=== PATIENT | male | born 1985 | race Caucasian/White ===

== ENCOUNTER 2025-02-19 06:09 | Emergency (ER) | payer BC ==
[~2025-02-19] VITALS: Ht 175.3 cm; Wt 86.4 kg
[2025-02-19] MEDS: ketorolac trometh 30MG/ML vial 30 MG/ML VIAL IV ONE (06:52)
[2025-02-19] MEDS: ondansetron/PF 4mg/2ml inj IV ONE (06:53)
[2025-02-19] MEDS: normal saline 1000ml 1,000 ML IV ONE (06:53)
--- NOTE | 2025-02-19 07:01 | Physician Documentation ---
History of Present Illness Chief Complaint: Flank Pain Stated Complaint: FLANK PAIN,VOMITING Time Seen by MD: 06:37 OK to notify your PCP?: Yes Primary Medical Doctor: NONE HPI 39-year-old male presents to the emergency department complaining of right flank pain that woke him up from sleep this morning, patient has a history of kidney stones in the past. He has associated nausea and vomiting with the flank pain that radiates into his right inguinal area. Denies hematuria. Timing/Duration: hours Quality/Severity: severe Location: RLQ, flank Radiation: RLQ Activities on Onset: spontaneous Modifiy Factors: Improves with: urinating Medication Reconciliation Allergies: Coded Allergies: No Known Allergies (Unverified , 02/08/10) Past Medical History Past Medical History: Kidney Stones Review of Systems All Other Systems at this time: Reviewed and Negative Constitutional: Reports: see HPI; Denies: fever Musculoskeletal: Reports: pain, back pain, muscle pain Physical Exam Vital Signs: RN Vital Signs have been reviewed: Yes, Temperature: 97.8, Heart Rate: 102, Respiratory Rate: 18, BP: 139/101, Pulse Oximetry: 95, Weight: 86.400 Oxygen Flow Rate: 0 Pulse Oximetry Reflects: adequate oxygenation General Appearance: alert, mild distress EENT: normal ENT inspection, pharynx normal Neck: normal inspection, full range of motion, supple, non-tender Respiratory: lungs clear, no respiratory distress Chest: no accessory muscle use, chest non-tender Cardiovascular: regular rate, rhythm, no edema Gastrointestinal: normal palpation, non-tender, bowels sounds present; No: pulsatile mass Back: CVA tenderness (R) Progress Results/Orders Results/Orders Orders - KEN GRAY DO * Iv Access / Saline Lock * (02/19/25 06:38) Normal Saline 1000ml (Sodium Chloride 10 (02/19/25 06:40) Ct Abdomen Pelvis (02/19/25 06:38) Completed Orders - KEN GRAY DO Ondansetron Inj. (Zofran 4mg/2ml Vial) (02/19/25 06:40) Ketorolac Trometh 30mg/Ml Vial (Toradol (02/19/25 06:40) Medications Received in ER Medications (Trade) Dose Ordered Sig/Lina Route PRN Reason Start Time Stop Time Status Last Admin Dose Admin (Zofran 4mg/2ml vial) 4 mg ONCE ONCE IV 02/19/25 06:40 02/19/25 06:42 DC 02/19/25 06:53 4 MG (Toradol inj. 30mg/ml) 30 mg ONCE ONCE IV 02/19/25 06:40 02/19/25 06:42 DC 02/19/25 06:52 30 MG Sodium Chloride 1,000 ml @ 1,000 mls/hr ONCE ONCE IV 02/19/25 06:40 02/19/25 07:39 02/19/25 06:53 1,000 MLS/HR Vital Signs 02/19/25 02/19/25 06:12 06:52 Temp 97.8 Pulse 102 Resp 16 18 B/P (MAP) 139/101 Pulse Ox 95 O2 Flow Rate 0 Laboratory Tests Test 02/19/25 06:45 CBC Comment Chemistry Comments Re-Evaluation Re-Evaluation : Progress 10:00 a.m. patient is sleeping comfortably, no acute distress, plan is to discharge home with Russell, Flomax, ibuprofen increase fluids, he was encouraged to strain his urine to try to catch the stone for analysis by his primary care provider. EKG/XRAY/CT/US/VASC/MRI CT : [facility] [address] [address] CAT SCAN Patient: OPHELIA PATIÑO Medical Record: [id number] [facility] 1985, Age: 39 Sex: Male Location: ER Patient Status: REG ER Service Date/Time: 02/19/25737 Ordering Physician: KEN GRAY DO Exam: CT ABDOMEN PELVIS Exam: CT CT ABDOMEN PELVIS History: Right kidney stone vs appy Comparison Study: None Technique: Multidetector spiral CT of the abdomen and pelvis was performed from lung bases to pubic symphysis. Imaging was performed without intravenous contrast. Coronal and sagittal multiplanar reformats were obtained from the axial data set by the technologist. Radiation Dose : 1. Abdomen/Pelvis: CTDIvol 17.4 mGy, DLP 969.04 mGy*cm. Findings: Evaluation of vasculature and solid organs is limited due to lack of intravenous contrast use. Lung Bases: Lung bases are clear. Visualized portions of the heart and pericardium are unremarkable. Liver: The liver is normal in size. No focal lesions. Diffusely hypoattenuating liver parenchyma consistent with hepatic steatosis. Gallbladder and Biliary Tree: The gallbladder is unremarkable. No intrahepatic or extrahepatic biliary ductal dilatation. Spleen: Unremarkable Pancreas: The pancreas is grossly unremarkable. Adrenal Glands: Unremarkable Kidneys: Mild right hydroureteronephrosis to the level of a 4 mm obstructive 4 mm calculus in the distal right ureter. Mild right perinephric fat stranding. Bilateral nonobstructive intrarenal calculi measuring up to 3 mm in the right kidney and 5 mm in the left kidney. GI tract: The stomach is grossly normal in appearance. No evidence of small bowel wall thickening or abnormal dilatation to suggest bowel obstruction. The colon is unremarkable. The appendix is visualized and is normal. Peritoneum/mesentery/retroperitoneum. No evidence of free intraperitoneal air. N o ascites. No evidence of suspicious lymphadenopathy. Abdominal Wall: Unremarkable. Vasculature: The visualized abdominal aorta is normal in size and caliber. Evaluation of abdominal and pelvic vessels is limited due to lack of intravenous contrast. Urinary Bladder: Grossly unremarkable for degree of distention. Pelvic Organs: Unremarkable Musculoskeletal: No aggressive focal bony lesions, acute fractures or dislocation. Left femoral intramedullary nail noted. Well-defined sclerotic lesion in the medial femoral neck measuring 9 mm, likely benign. IMPRESSION: 1. Acute obstructive uropathy due to 4 mm obstructive right ureteral calculus. Additional bilateral nonobstructive intrarenal calculi. 2. Hepatic steatosis. Electronically Signed by:HOLLI GERMAIN MD Date & Time: 02/19/25756 Dictated by: HOLLI GERMAIN MD Dictation date and time: 02/19/25756 Primary Care Provider: NO PRIMARY CARE PROVIDER cc: KEN GRAY DO ~ Medical Decision Making Findings Review of CT shows a kidney stone, no evidence of severe hydronephrosis, no evidence of mass, still have clinical concern for possible other etiologies including appendicitis however there was no inflammatory changes around the appendix, patient will be discharged home with strict return precautions pain medications and recommend close follow up and increasing fluids. Differential Dx:Considerations: Include: AAA, Appendicitis, Cholangitis, Cholelithasis, GI hemorrhage, Testicular torsion, Urinary obstruction, Urinary tract infection, Urolithiasis Departure Disposition: HOME / SELF CARE / HOMELESS Impression: Primary Impression: Renal colic Additional Impression: Calculus of kidney Condition: Improved Discharge Instructions: Kidney Stones, Renal Colic Referrals: NO PRIMARY CARE PROVIDER (PCP) Prescriptions Ibuprofen (Ibuprofen) 600 Mg Tablet 1 TAB PO Q6H PRN for pain, #30 TAB Prov: KEN GRAY DO 02/19/25 Tamsulosin Hcl* (Flomax*) 0.4 Mg Cap.sr.24h 0.4 MG PO DAILY, #10 CAP Prov: KEN GRAY DO 02/19/25 Hydrocodone Bit/Acetaminophen (Hydrocodone-Apap 10-325 Tablet) 10mg/325mg Tablet 1 TAB PO QID PRN PRN for pain for 5 Days, #20 TAB Prov: KEN GRAY DO 02/19/25 Comments Russell prescription was not transmitted to your pharmacy at your request Education Educated: Patient Educated regarding: diagnosis, treatment, prognosis Signature Scribe Signature: None Attestation: Dictated by myself KEN GRAY DO February 19, 2025 07:01
[2025-02-19 07:11] LABS: BASOPHILS % (AUTO) 0.1 % (0-1); EOSINOPHILS % (AUTO) 0 % (0-6); HEMATOCRIT 48.2 % (42.0-52.0); HEMOGLOBIN 16.2 g/dl (14.0-17.9); LYMPHOCYTES # (AUTO) 0.7 X10'3 (1.1-4.8); LYMPHOCYTES % (AUTO) 5.4 % (21-51); MEAN CORPUSCULAR HEMOGLOBIN 28.4 PG (27.0-31.0); MEAN CORPUSCULAR HGB CONC 33.7 g/dL (33.0-36.5); MEAN CORPUSCULAR VOLUME 84.4 FL (78-98); MEAN PLATELET VOLUME 10.1 FL (7.4-10.4); MONOCYTES # (AUTO) 0.5 X10'3 (0-0.9); MONOCYTES % (AUTO) 3.9 % (2-12); NEUTROPHILS # (AUTO) 11.9 X10'3 (1.8-7.7); NEUTROPHILS % (AUTO) 90.6 % (42-75); PLATELET COUNT 189 X10'3 (140-440); RED CELL DISTRIBUTION WIDTH 13.8 % (11.5-14.5); WHITE BLOOD COUNT 13.2 X10'3 (4.5-11.0)
[2025-02-19 07:20] LABS: ALANINE AMINOTRANSFERASE 35 U/L (12-78); ALBUMIN 4.4 G/DL (3.4-5.0); ALBUMIN/GLOBULIN RATIO 1.4 (1.1-1.5); ALKALINE PHOSPHATASE 83 IU/L (46-116); ANION GAP 10 (8-16); ASPARTATE AMINO TRANSFERASE 19 U/L (10-37); BILIRUBIN,TOTAL 0.5 MG/DL (0.1-1.0); BLOOD UREA NITROGEN 20 MG/DL (7-18); BUN/CREATININE RATIO 17.1 (10.0-20.0); CALCIUM 8.9 MG/DL (8.5-10.1); CHLORIDE 108 MMOL/L (99-107); CREATININE 1.17 MG/DL (0.60-1.10); GLUCOSE 134 MG/DL (70-104); LIPASE 30 U/L (16-77); POTASSIUM 3.8 MMOL/L (3.5-5.1); SODIUM 143 MMOL/L (135-145); TOTAL PROTEIN 7.6 G/DL (6.4-8.2); eCRCL 86 ML/MIN; eGFR 70 ML/MIN
--- NOTE | 2025-02-19 07:59 | RADIOLOGY REPORT ---
Exam: CT CT ABDOMEN PELVIS History: Right kidney stone vs appy Comparison Study: None Technique: Multidetector spiral CT of the abdomen and pelvis was performed from lung bases to pubic s ymphysis. Imaging was performed without intravenous contrast. Coronal and sagittal multiplanar reform ats were obtained from the axial data set by the technologist. Radiation Dose : 1. Abdomen/Pelvis: CTDIvol 17.4 mGy, DLP 969.04 mGy*cm. Findings: Evaluation of vasculature and solid organs is limited due to lack of intravenous contrast use. Lung Bases: Lung bases are clear. Visualized portions of the heart and pericardium are unremarkable. Liver: The liver is normal in size. No focal lesions. Diffusely hypoattenuating liver parenchyma con sistent with hepatic steatosis. Gallbladder and Biliary Tree: The gallbladder is unremarkable. No intrahepatic or extrahepatic bilia ry ductal dilatation. Spleen: Unremarkable Pancreas: The pancreas is grossly unremarkable. Adrenal Glands: Unremarkable Kidneys: Mild right hydroureteronephrosis to the level of a 4 mm obstructive 4 mm calculus in the dis twin right ureter. Mild right perinephric fat stranding. Bilateral nonobstructive intrarenal calculi measuring up to 3 mm in the right kidney and 5 mm in the left kidney. GI tract: The stomach is grossly normal in appearance. No evidence of small bowel wall thickening or abnormal dilatation to suggest bowel obstruction. The colon is unremarkable. The appendix is visualiz ed and is normal. Peritoneum/mesentery/retroperitoneum. No evidence of free intraperitoneal air. No ascites. No evidenc e of suspicious lymphadenopathy. Abdominal Wall: Unremarkable. Vasculature: The visualized abdominal aorta is normal in size and caliber. Evaluation of abdominal a nd pelvic vessels is limited due to lack of intravenous contrast. Urinary Bladder: Grossly unremarkable for degree of distention. Pelvic Organs: Unremarkable Musculoskeletal: No aggressive focal bony lesions, acute fractures or dislocation. Left femoral intr amedullary nail noted. Well-defined sclerotic lesion in the medial femoral neck measuring 9 mm, likel y benign. IMPRESSION: 1. Acute obstructive uropathy due to 4 mm obstructive right ureteral calculus. Additional bilateral nonobstructive intrarenal calculi. 2. Hepatic steatosis.
[2025-02-19 09:13] LABS: BILIRUBIN,URINE NEGATIVE (Neg); CLARITY,URINE CLEAR (Clear); COLOR,URINE YELLOW (Yellow); GLUCOSE, URINE NEGATIVE (Neg); KETONES,URINE TRACE mg/dl (Neg); LEUKOCYTE ESTERASE ,URINE NEGATIVE (Neg); NITRITES, URINE NEGATIVE (Neg); OCCULT BLOOD,URINE LARGE (Neg); PROTEIN,URINE TRACE mg/dl (Neg); UROBILINOGEN,URINE 0.2 E.U/dL (0.2-1.0)
[2025-02-19 09:21] LABS: UA COLLECTION TYPE CLN CATCH MIDSTREAM
[2025-02-19 09:37] LABS: BACTERIA,URINE FEW /HPF (Neg); MUCUS STRANDS FEW /LPF (Neg); RBC,URINE 50-100 /HPF (0-2); SQUAMOUS EPITHELIAL CELL,UR FEW /LPF (FEW)
[2025-02-19] MEDS ORDERED: HYDR-3973 PO (10:06)
[2025-02-19] MEDS ORDERED: IBUP-1985 PO (10:06)
[2025-02-19] MEDS ORDERED: TAMS-55 PO (10:06)
[2025-02-19 10:20] VITALS: BP 109/69; PULSE 92; RESP 18; TEMP 98.2; O2SAT 99
== END 2025-02-19 10:23 | disposition home or self-care (01) ==
LOC: ER 06:11
DX: N20.2 Calculus of kidney with calculus of ureter (principal); Z87.442 Personal history of urinary calculi
CPT/HCPCS: 36415; 74176; 80053; 81001; 83690; 85025; 87088; 96361; 96374; 96375; 99285; J1885; J2405; J7030

== ENCOUNTER 2025-04-09 22:46 | Emergency (ER) | payer BC ==
[~2025-04-09] VITALS: Ht 175.3 cm; Wt 84.7 kg
[~2025-04-09 22:46] MED LIST: IBUP-1985 PO
--- NOTE | 2025-04-09 22:55 | Physician Documentation ---
History of Present Illness ~ Chief Complaint: Flank Pain Stated Complaint: FLANK PAIN Time Seen by MD: 23:28 OK to notify your PCP?: Yes Primary Medical Doctor: NONE Source: patient Mode of Arrival: POV Exam Limitations: no limitations HPI 31-year-old male presents with right flank pain for the past 2 hours. He was seen recently for kidney stone in the left kidney which he was able to pass and was 4 mm. He attempted to take ibuprofen prior to arrival but vomited it back up. He says the pain feels exactly like last time he passed the kidney stone. He was not aware of having any stone in the right side from his prior visit. Medication Reconciliation Allergies: Coded Allergies: No Known Allergies (Unverified , 02/08/10) Scheduled PRN Ibuprofen (Ibuprofen), 1 TAB PO Q6H PRN for pain Past Medical History Past Medical History: Kidney Stones Review of Systems All Other Systems at this time: Reviewed and Negative Physical Exam Vital Signs: RN Vital Signs have been reviewed: Yes, Temperature: 98.0, Source: Temporal, Heart Rate: 84, Respiratory Rate: 14, BP: 135/94, Pulse Oximetry: 100, Weight: 84.650 Pulse Oximetry Reflects: adequate oxygenation Physical Exam General: Alert, no distress. HEENT: No injection, moist mucous membranes. Neck: Full range of motion. Respiratory: No respiratory distress, equal chest rise and fall. Chest: No accessory muscle use. Cardiovascular: Regular rate and rhythm. Gastrointestinal: Nondistended. Extremities: Normal range of motion, no deformity. Back: Right CVA tenderness Neurologic: Oriented x4. Psychiatric: Normal mood and affect. Skin: Normal color, warm and dry. Progress Results/Orders Results/Orders Orders - MINGO LANGFORD MD Normal Saline 1000ml (Sodium Chloride 10 (04/10/25 01:10) Acetaminophen 325mg Tablet (Tylenol Tabl (04/10/25 01:40) Completed Orders - MINGO LANGFORD MD Cbc/Diff (04/09/25 23:33) BMP (04/09/25 23:33) Morphine 4mg/Ml Inj. (Morphine Inj.) (04/10/25 01:10) Ua W/Microscopic, Cult If Ind (04/10/25 01:21) Medications Received in ER Medications (Trade) Dose Ordered Sig/Lina Route PRN Reason Start Time Stop Time Status Last Admin Dose Admin (Toradol inj. 30mg/ml) 30 mg ONCE ONCE IM 04/09/25 22:55 04/09/25 23:21 DC 04/09/25 23:23 30 MG (Zofran ODT tablet) 4 mg ONCE ONCE PO 04/09/25 22:55 04/09/25 23:21 DC 04/09/25 23:24 4 MG Sodium Chloride 1,000 ml @ 1,000 mls/hr ONCE ONCE IV 04/10/25 01:10 04/10/25 02:09 04/10/25 01:36 1,000 MLS/HR (morphine inj.) 4 mg ONCE ONCE IV 04/10/25 01:10 04/10/25 01:11 DC 04/10/25 01:35 4 MG Vital Signs 04/09/25 04/09/25 04/10/25 04/10/25 22:47 23:23 00:27 00:27 Temp 98.0 Pulse 84 65 Resp 14 20 14 18 B/P (MAP) 135/94 118/81 (93) Pulse Ox 100 97 04/10/25 01:35 Resp 16 Laboratory Tests Test 04/10/25 00:01 04/10/25 01:21 White Blood Count 13.2 H Red Blood Count 5.56 Hemoglobin 16.1 Hematocrit 47.0 Mean Corpuscular Volume 84.6 Mean Corpuscular Hemoglobin 28.9 Mean Corpuscular Hemoglobin Concent 34.2 Red Cell Distribution Width 13.9 Platelet Count 190 Mean Platelet Volume 9.1 Neutrophils (%) (Auto) 88.8 H Lymphocytes (%) (Auto) 7.2 L Monocytes (%) (Auto) 3.6 Eosinophils (%) (Auto) 0.2 Basophils (%) (Auto) 0.2 Neutrophils # (Auto) 11.7 H Lymphocytes # (Auto) 0.9 L Monocytes # (Auto) 0.5 Eosinophils # (Auto) 0.0 Basophils # (Auto) 0.0 CBC Comment Sodium Level 143 Potassium Level 3.6 Chloride Level 105 Carbon Dioxide Level 25.4 Anion Gap 13 Blood Urea Nitrogen 17 Creatinine 1.12 H Estimated GFR/1.73 m2 73 BUN/Creatinine Ratio 15.2 Glucose Level 123 H Calcium Level 9.1 Albumin 4.2 Chemistry Comments Urine Specimen Description Cln catch midstream Urine Color Yellow Urine Clarity Cloudy Urine pH 7.0 Urine Specific [place] 1.020 Urine Protein 30 H Urine Glucose (UA) Negative Urine Ketones 15 H Urine Occult Blood Large H Urine Nitrite Negative Urine Bilirubin Negative Urine Urobilinogen 0.2 Urine Leukocyte Esterase Negative Urine RBC 20-50 Urine WBC 0-4 Urine Squamous Epithelial Cells Few Urine Bacteria None seen Urine Culture Indicated Not ind Volume Urine Centrifuged 10 ml Urine Comment Medical Decision Making Additional info obtained from: old records Findings Patient presented to the emergency room with flank pain as per HPI. Differentials include but are not limited to kidney stone, musculoskeletal pain, aortic pathology, referred pain therefore emergent labs and imaging indicated. Labs show 3 mm kidney stone. Patient is responding to pain therapy, no evidence of acute kidney injury and no urinary tract infection. I believe he will do well on outpatient basis. Departure Disposition: HOME / SELF CARE / HOMELESS Impression: Primary Impression: Calculus of kidney Condition: Improved Discharge Instructions: Kidney Stones Referrals: NO PRIMARY CARE PROVIDER (PCP) Prescriptions Ondansetron 8mg ODT (Ondansetron Odt) 8 Mg Tab.rapdis 1 TAB PO Q6H for nausea/vomiting for 3 Days, #12 TAB 0 Refills Prov: MINGO LANGFORD MD 04/10/25 Hydrocodone Bit/Acetaminophen 5/325 MG (Tyrone 5/325 MG) 5 Mg/325 Mg Tablet 1-2 TAB PO Q4-6 hours PRN for pain, #15 TAB Prov: MINGO LANGFORD MD 04/10/25 Tamsulosin Hcl* (Flomax*) 0.4 Mg Cap.sr.24h 1 CAP PO DAILY, #10 CAP Prov: MINGO LANGFORD MD 04/10/25 Education Educated: Patient Educated regarding: diagnosis, treatment, need for follow up Additional Comment Medical Screen Exam This patient recieved a medical screening examination. After reviewing the individual's medical complaints with presenting symptoms and performing an appropriate physical examination, it was determined that no immediate life- threatening emergency medical condition is present. This individual is also not a women having contractions. Signature Scribe Signature: No scribe Attestation: The note accurately reflects work and decisions made by me.Mingo Lagnford MD 04/10/25 01:44 AKIRA PITTS [employer] Apr 09, 2025 22:55 MNIGO LANGFORD MD Apr 10, 2025 01:44
[2025-04-09] MEDS: ketorolac trometh 30MG/ML vial 30 MG/ML VIAL IM ONE (23:23)
[2025-04-09] MEDS: ondansetron 4mg rapidly disintigrating tab PO ONE (23:24)
[2025-04-10 00:16] LABS: MEAN PLATELET VOLUME 9.1 FL (7.4-10.4); RED CELL DISTRIBUTION WIDTH 13.9 % (11.5-14.5)
[2025-04-10 00:22] LABS: CREATININE 1.12 MG/DL (0.60-1.10); TOTAL CARBON DIOXIDE 25.4 MMOL/L (24-32); eCRCL 89 ML/MIN; eGFR 73 ML/MIN
[2025-04-10 00:27] VITALS: BP 118/81; PULSE 65; O2SAT 97
--- NOTE | 2025-04-10 00:55 | RADIOLOGY REPORT ---
Exam: CT CT ABDOMEN PELVIS History: right flank pain, hx kidney stone Comparison Study: CT CT ABDOMEN PELVIS on DOS: 02/19/25 Technique: Multidetector spiral CT of the abdomen was performed from lung bases to pubic symphysis. I maging was performed without IV contrast. Axial, coronal and sagittal multiplanar reformats were obta ined from the axial data set by the technologist. Radiation Dose : 1. Abdomen/Pelvis: CTDIvol 16.68 mGy, DLP 934.55 mGy*cm. Findings: Evaluation of solid organs is limited due to lack of intravenous contrast use. Lung Bases: No acute or significant lung base finding. Normal heart size. No pleural or pericardial effusion. Liver: The liver is normal in size. No focal lesions. Gallbladder and Biliary Tree: Unremarkable Spleen: Unremarkable Pancreas: The pancreas is grossly normal in appearance. Adrenal Glands: Unremarkable Kidneys: Moderate left hydronephrosis and proximal ureteral dilatation secondary to a proximal to mid ureteral calculus measuring 3 mm. The right kidney is normal in appearance without evidence of hydro nephrosis or nephrolithiasis. Bladder: Grossly unremarkable for degree of distention. Bowel: The stomach is grossly normal in appearance. Small bowel and colon are normal in caliber and d istribution. The appendix is normal. Ascites: Absent. Lymphadenopathy: No mesenteric, retroperitoneal or periportal lymphadenopathy. Abdominal Wall and Mesentery: Unremarkable. Vasculature: The visualized abdominal aorta is normal in size and caliber. Evaluation of abdominal a nd pelvic vessels is limited due to lack of intravenous contrast. Pelvic Organs: Unremarkable Musculoskeletal: No aggressive focal bony lesions, acute fractures or dislocation. IMPRESSION: 1. Moderate left hydroureteronephrosis secondary to a partially obstructing proximal to mid ureteral calculus. Radiation optimization: All CT scans at this facility use at least one of these dose optimization pal hniques: automated exposure control mA and/or kV adjustment per patient size (includes targeted exam s where dose is matched to clinical indication) or iterative reconstruction.
[2025-04-10 01:29] LABS: LEUKOCYTE ESTERASE ,URINE NEGATIVE (Neg); NITRITES, URINE NEGATIVE (Neg); OCCULT BLOOD,URINE LARGE (Neg)
[2025-04-10 01:35] VITALS: RESP 16
[2025-04-10 01:35] LABS: UA COLLECTION TYPE CLN CATCH MIDSTREAM
[2025-04-10] MEDS: morphine 4 MG/ML inj SYRINge IV ONE (01:35)
[2025-04-10] MEDS: normal saline 1000ml 1,000 ML IV ONE (01:36)
[2025-04-10 01:37] LABS: SQUAMOUS EPITHELIAL CELL,UR FEW /LPF (FEW)
[2025-04-10] MEDS ORDERED: HYDR-3965 PO (01:43)
[2025-04-10] MEDS ORDERED: TAMS-55 PO (01:43)
[2025-04-10] MEDS ORDERED: ONDA-245 PO (01:43)
[2025-04-10 02:45] VITALS: TEMP 98
== END 2025-04-10 02:48 | disposition home or self-care (01) ==
LOC: ER 22:46
DX: N20.0 Calculus of kidney (principal)
CPT/HCPCS: 36415; 74176; 80048; 81001; 85025; 96361; 96372; 96374; 99285; J1885; J2270; J7030

== ENCOUNTER 2025-05-14 12:01 | Emergency (ER) | payer BC ==
[~2025-05-14] VITALS: Ht 175.3 cm; Wt 86.7 kg
[~2025-05-14 12:01] MED LIST changes: +ONDA-245 PO
[2025-05-14 12:13] VITALS: TEMP 97.9
[2025-05-14 13:39] LABS: LEUKOCYTE ESTERASE ,URINE NEGATIVE (Neg); NITRITES, URINE NEGATIVE (Neg); OCCULT BLOOD,URINE TRACE-INTACT (Neg)
[2025-05-14 13:49] LABS: UA COLLECTION TYPE CLN CATCH MIDSTREAM
[2025-05-14 13:50] LABS: MUCUS STRANDS FEW /LPF (Neg); SQUAMOUS EPITHELIAL CELL,UR FEW /LPF (FEW)
[2025-05-14 13:51] LABS: AMORPHOUS URATES 3+
[2025-05-14] MEDS: normal saline 1000ml 1,000 ML IV ONE (16:06)
--- NOTE | 2025-05-14 16:11 | RADIOLOGY REPORT ---
Exam: CT CT ABDOMEN PELVIS History: Kidney stones, concern for lodged stone Comparison Study: CT CT ABDOMEN PELVIS on DOS: 04/09/25, CT CT ABDOMEN PELVIS on DOS: 02/19/25 Technique: Multidetector spiral CT of the abdomen and pelvis was performed from lung bases to pubic symphysis. Imaging was performed without IV contrast. Axial, coronal and sagittal multiplanar reform ats were obtained from the axial data set by the technologist. Radiation dose : Abdomen/Pelvis: CTDIvol 18 mGy, DLP 1055 mGy*cm. Findings: Evaluation of solid organs is limited due to lack of intravenous contrast use. Lung Bases: No acute or significant lung base finding. Normal heart size. No pleural or pericardial effusion. Liver: The liver is normal in size. No focal lesions. Gallbladder and biliary Tree: Unremarkable Spleen: Unremarkable Pancreas: The pancreas is grossly normal in appearance. Adrenal Glands: Unremarkable Kidneys: Punctate right renal calculus. No hydronephrosis. Left renal cyst. Bladder: Grossly unremarkable for degree of distention. Bowel: The stomach is grossly normal in appearance. Small bowel and colon are normal in caliber and d istribution. Normal appendix is visualized in the right lower quadrant without findings of appendicit is. Ascites: Absent Lymphadenopathy: Subcentimeter mesenteric lymph nodes. Abdominal wall and Mesentery: Unremarkable. Vasculature: The visualized abdominal aorta is normal in size and caliber. Evaluation of abdominal a nd pelvic vessels is limited due to lack of intravenous contrast. Pelvic Organs: Unremarkable Musculoskeletal: No aggressive focal bony lesions, acute fractures or dislocation. IMPRESSION: 1. No acute abdominal or pelvic findings. Punctate nonobstructive right renal calculus. Radiation optimization: All CT scans at this facility use at least one of these dose optimization pal hniques: Automated exposure control mA and/or kV adjustment per patient size (includes targeted exams where dose is matched to clinical indication) or iterative reconstruction. HS:Y
[2025-05-14 16:13] LABS: MEAN PLATELET VOLUME 9.3 FL (7.4-10.4); RED CELL DISTRIBUTION WIDTH 14.2 % (11.5-14.5)
[2025-05-14] MEDS ORDERED: fentaNYL/PF 50MCG/1 ML 2ML syringe IV ONE (16:25)
[2025-05-14 16:34] LABS: CREATININE 0.79 MG/DL (0.60-1.10); TOTAL CARBON DIOXIDE 26.5 MMOL/L (24-32); eCRCL 127 ML/MIN; eGFR > 90 ML/MIN
[2025-05-14] MEDS: fentaNYL/PF 50MCG/1 ML 2ML syringe IV ONE (18:07)
[2025-05-14] MEDS: fentaNYL/PF 50MCG/1 ML 2ML syringe ONE (18:15)
--- NOTE | 2025-05-14 19:15 | Physician Documentation ---
History of Present Illness ~ Chief Complaint: Blood in Urine Stated Complaint: KIDNEY STONE Time Seen by MD: 14:35 Primary Medical Doctor: NONE Mode of Arrival: POV HPI Patient is a 39-year-old male that presents to emergency department for evaluation of kidney stones. Patient reportedly has a kidney stone lodged in his urethra at the tip just at the meatus. Reports that he has a history of passing kidney stones. They are usually very painful but that is usually able to pass them without issue. Medication Reconciliation Allergies: Coded Allergies: No Known Allergies (Unverified , 05/14/25) Scheduled Ondansetron 8mg ODT (Ondansetron Odt), 1 TAB PO Q6H Scheduled PRN Ibuprofen (Ibuprofen), 1 TAB PO Q6H PRN for pain Discontinued Medications Hydrocodone Bit/Acetaminophen 5/325 MG ([place] 5/325 MG), 1-2 TAB PO Q4-6 hours PRN for pain Discontinued Reason: Auto Discontinued Tamsulosin Hcl* (Flomax*), 1 CAP PO DAILY Discontinued Reason: Auto Discontinued Past Medical History Past Medical History: Kidney Stones Smoking Status: Never smoker Review of Systems ROS As stated above in the HPI, otherwise all systems are reviewed and negative. Physical Exam Vital Signs: Temperature: 97.9, Source: Temporal, Heart Rate: 59, Respiratory Rate: 18, BP: 120/81, Pulse Oximetry: 99, Weight: 86.650 Oxygen Flow Rate: 0 Physical Exam VITALS: Reviewed and as above. GENERAL: Alert, no apparent distress. HEENT: Normocephalic, atraumatic, PERRL, EOMI, dry mucosa, no erythema RESPIRATORY: Lungs clear, normal breath sounds, no respiratory distress. CHEST: No accessory muscle use, no retractions CV: Regular rate, rhythm, no edema, no murmur, No: JVD GI: Soft, non-tender, bowels sounds present, no rebound, guarding, or rigidity : mild edema at the meatus, small kidney stone noted at urethral opening. BACK: No CVA tenderness, or swelling MUSCULOSKELETAL No deformities, no edema SKIN: Warm and dry, no rash NEURO: Oriented x4, No motor or sensory deficit PSYCH: Normal mood and affect, no agitation Progress Results/Orders Results/Orders Orders - DARA GREENE [employer] Ct Abdomen Pelvis (05/14/25 15:39) Tamsulosin Capsule (Flomax Capsule) (05/14/25 15:48) Completed Orders - DARA GREENE [employer] Cbc/Diff (05/14/25 15:24) CMP (05/14/25 15:24) Ct Abdomen Pelvis (05/14/25 15:39) Normal Saline 1000ml (0.9% Sodium Chlori (05/14/25 15:25) Fentanyl/Pf (Fentanyl 0.05 Mg/Ml Syringe (05/14/25 18:05) Fentanyl/Pf (Fentanyl 0.05 Mg/Ml Syringe (05/14/25 18:04) Medications Received in ER Medications (Trade) Dose Ordered Sig/Lina Route PRN Reason Start Time Stop Time Status Last Admin Dose Admin Sodium Chloride 1,000 ml @ 1,000 mls/hr ONCE ONCE IV 05/14/25 15:25 05/14/25 16:24 DC 05/14/25 16:06 1,000 MLS/HR (Flomax capsule) 0.4 mg HS PO 05/14/25 15:48 05/14/25 16:13 0.4 MG (fentaNYL 0.05 MG/ML syringe) 50 mcg ONCE ONCE IV 05/14/25 18:05 05/14/25 18:06 DC 05/14/25 18:07 50 MCG Vital Signs 05/14/25 05/14/25 05/14/25 05/14/25 12:13 14:37 15:47 16:37 Temp 97.9 Pulse 70 61 55 Resp 18 14 17 18 B/P (MAP) 133/79 109/71 (84) 110/77 (88) Pulse Ox 96 99 99 O2 Flow Rate 0 0 05/14/25 05/14/25 05/14/25 05/14/25 17:21 17:21 18:07 18:08 Pulse 56 72 Resp 16 18 18 18 B/P (MAP) 122/78 (93) 121/87 (98) Pulse Ox 100 99 O2 Flow Rate 0 05/14/25 05/14/25 18:15 19:01 Pulse 59 Resp 18 18 B/P (MAP) 120/81 (94) Pulse Ox 99 O2 Flow Rate 0 Laboratory Tests Test 05/14/25 13:26 05/14/25 16:02 Urine Specimen Description Cln catch midstream Urine Color Yellow Urine Clarity Slightly cloudy Urine pH 6.0 Urine Specific [place] 1.025 Urine Protein 30 H Urine Glucose (UA) Negative Urine Ketones Negative Urine Occult Blood Trace-intact Urine Nitrite Negative Urine Bilirubin Negative Urine Urobilinogen 0.2 Urine Leukocyte Esterase Negative Urine RBC 3-10 Urine WBC 5-10 H Urine Squamous Epithelial Cells Few Urine Amorphous Urates 3+ Urine Bacteria Few Urine Coarse Granular Casts 3-5 Urine Mucus Few Volume Urine Centrifuged 10 ml Urine Comment White Blood Count 7.7 Red Blood Count 5.66 Hemoglobin 16.3 Hematocrit 47.9 Mean Corpuscular Volume 84.7 Mean Corpuscular Hemoglobin 28.9 Mean Corpuscular Hemoglobin Concent 34.1 Red Cell Distribution Width 14.2 Platelet Count 184 Mean Platelet Volume 9.3 Neutrophils (%) (Auto) 63.3 Lymphocytes (%) (Auto) 27.3 Monocytes (%) (Auto) 7.3 Eosinophils (%) (Auto) 1.7 Basophils (%) (Auto) 0.4 Neutrophils # (Auto) 4.9 Lymphocytes # (Auto) 2.1 Monocytes # (Auto) 0.6 Eosinophils # (Auto) 0.1 Basophils # (Auto) 0.0 CBC Comment Sodium Level 140 Potassium Level 3.9 Chloride Level 105 Carbon Dioxide Level 26.5 Anion Gap 9 Blood Urea Nitrogen 13 Creatinine 0.79 Estimated GFR/1.73 m2 > 90 BUN/Creatinine Ratio 16.5 Glucose Level 91 Calcium Level 8.9 Total Bilirubin 0.6 Aspartate Amino Transf (AST/SGOT) 17 Alanine Aminotransferase (ALT/SGPT) 26 Alkaline Phosphatase 87 Total Protein 7.8 Albumin 4.2 Globulin 3.6 Albumin/Globulin Ratio 1.2 Chemistry Comments Medical Decision Making Findings Patient presents with flank pain and is found to have a kidney stone lodged in his urethra with significant pain. Patient given fluids and pain medication. Considered and doubt other acute emergent abdominal pathology (appendicitis, biliary pathology, diverticulitis, AAA, genital torsion). Stone removed. Patient will follow up with primary care provider and Urology. Return to the emergency department she has any worsening symptoms any additional concerning symptoms. Urinary Diff Dx:Considerations: Include: AAA, Aortic dissection, Appendicitis, Appendicitis train, Bowel obstruction, Bladder outlet obstruc., Cholelithiasis, Choleangitis, Cholecystitis, DJD, Epididymitis, Hepatitis, HNP, Impaction, Musculoskeletal pain, Pancreatitis, Postoperative Comp., Prostatitis, Pyelonephritis, Renal failure, Renal infarction, Strain, Urolithiasis, Urinary Obstruction, Urethritis, Urinary retention, UTI, Other Genital Diff Dx:Considerations: Include: Abscess, Balanitis, Balanoposthitis, Cellulitis, Epididymitis, Entrapment injury, June's gangrene, Foreign body, Facture penis, Hydrocele, Inguinal hernia, Post-op Complication, Paraphimosis, Prostatitis, Priapism, Syphilis, Testicular torsion, Torsion-epididymis, Torsion-appendiceal, Urinary retention, Urethritis, Urethritis-chlamydial, Urethritis-gonococcal, UTI, Other Departure Disposition: 01 HOME / SELF CARE / HOMELESS Impression: Primary Impression: Calculus of kidney Condition: Stable Discharge Instructions: Hematuria, Adult, Kidney Stones Referrals: NO PRIMARY CARE PROVIDER (PCP) Prescriptions Cephalexin*Monohydrate* (Keflex*) 500 Mg Capsule 1 CAP PO QID, #40 CAP Prov: DARA GREENE 05/14/25 Education Educated: Patient Educated regarding: diagnosis, treatment, need for follow up DARA GREENE May 14, 2025 19:15
[2025-05-14] MEDS ORDERED: CEPH-585 PO (19:38)
[2025-05-14 19:54] VITALS: BP 114/74; PULSE 54; RESP 17; O2SAT 98
== END 2025-05-14 19:55 | disposition home or self-care (01) ==
LOC: ER 12:02
DX: N20.0 Calculus of kidney (principal); Z87.442 Personal history of urinary calculi; Z79.899 Other long term (current) drug therapy
CPT/HCPCS: 36415; 74176; 80053; 81001; 85025; 96361; 96374; 99285; J3010; J7030